=== PATIENT | female | born 1945 | race Caucasian/White ===

== ENCOUNTER 2016-08-07 10:51 | Outpatient (CLI) | payer MEDICARE | END 2016-08-07 10:52 | disposition home or self-care (01) | DX: Z12.31 Encounter for screening mammogram for malignant neoplasm of breast (principal) ==

== ENCOUNTER 2016-08-26 12:01 | Outpatient (CLI) | payer MEDICARE | END 2016-08-26 12:02 | DX: F32.9 Major depressive disorder, single episode, unspecified (principal); I10 Essential (primary) hypertension; E78.5 Hyperlipidemia, unspecified ==

== ENCOUNTER 2016-09-02 09:03 | Outpatient (CLI) | payer MEDICARE | END 2016-09-02 09:04 | disposition home or self-care (01) | DX: R73.01 Impaired fasting glucose (principal) ==

== ENCOUNTER 2016-10-24 11:07 | Outpatient (CLI) | payer MEDICARE | END 2016-10-24 11:08 | disposition home or self-care (01) | DX: R91.8 Other nonspecific abnormal finding of lung field (principal) ==

== ENCOUNTER 2016-10-31 08:39 | Day surgery (SDC) | payer MEDICARE ==
[2016-10-31] MEDS ORDERED: LACTATED RINGERS 1,000 ML IV ONE (09:22)
[2016-10-31] MEDS ORDERED: fentaNYL 100 MCG/2 ML VIAL IVP ONE (09:46)
[2016-10-31] MEDS ORDERED: MIDAZOLAM 2 MG/2 ML VIAL IVP ONE (09:46)
[2016-10-31 10:58] VITALS: BP 154/75
== END 2016-10-31 08:40 | disposition home or self-care (01) ==
LOC: SDS 08:39
PROVIDERS: ATTEND Surgery
PROC: 0DBN8ZZ Excision of Sigmoid Colon, Via Natural or Artificial Opening Endoscopic (ICD-10-PCS; 2016-10-31)
PROC: 0DBK8ZZ Excision of Ascending Colon, Via Natural or Artificial Opening Endoscopic (ICD-10-PCS; principal; 2016-10-31 09:45)
DX: Z12.11 Encounter for screening for malignant neoplasm of colon (principal); D12.2 Benign neoplasm of ascending colon; D12.7 Benign neoplasm of rectosigmoid junction; D12.5 Benign neoplasm of sigmoid colon; K64.8 Other hemorrhoids; K57.30 Diverticulosis of large intestine without perforation or abscess without bleeding; I10 Essential (primary) hypertension; R05 Cough; Z85.118 Personal history of other malignant neoplasm of bronchus and lung; Z87.891 Personal history of nicotine dependence
CPT/HCPCS: 45380; J7120; 88305

== ENCOUNTER 2016-12-26 08:00 | Outpatient (CLI) | payer MEDICARE ==
[2016-12-26 18:34] LABS: BILIRUBIN,URINE NEGATIVE (NEGATIVE); PH,URINE 6.5 PH (5.0-7.5)
[2016-12-26 18:35] LABS: UA w/ MICROSCOPIC CHARGE YES
[2016-12-26 19:06] LABS: UR CULTURE IF IND INDICATED
== END 2016-12-26 08:01 | disposition home or self-care (01) ==
LOC: LAB.R 08:00
PROVIDERS: ATTEND Nurse Practitioner Family
DX: N39.0 Urinary tract infection, site not specified (principal)
CPT/HCPCS: 81001; 81003; 87086

== ENCOUNTER 2017-07-28 08:00 | Outpatient (CLI) | payer MEDICARE ==
[2017-07-28 18:29] LABS: BASOPHILS # (AUTO) 0.1 10^3/uL (0.0-0.1); BASOPHILS % (AUTO) 0.5 %; EOSINOPHILS # (AUTO) 0.2 10^3/uL (0.0-0.7); EOSINOPHILS % (AUTO) 1.4 %; HGB - HEMOGLOBIN 14.5 g/dL (12.0-16.0); LYMPHOCYTES # (AUTO) 2.1 10^3/uL (1.5-3.5); LYMPHOCYTES % (AUTO) 17.2 %; MEAN CORPUSCULAR HEMOGLOBIN 31.8 pg (27.0-31.0); MEAN CORPUSCULAR HGB CONC 33.3 g/dL (32.0-36.0); MEAN CORPUSCULAR VOLUME 95.4 fL (81.0-99.0); MONOCYTES % (AUTO) 7.8 %; NEUTROPHILS % (AUTO) 73.1 %; PLT - PLATELET COUNT 275 10^3/uL (130-450); RED BLOOD COUNT 4.56 10^6/uL (4.20-5.40); RED CELL DISTRIBUTION WIDTH 13.5 % (12.0-15.0); WHITE BLOOD COUNT 12.3 x10^3/uL (4.8-10.8)
[2017-07-28 18:40] LABS: CALCIUM 9.2 mg/dL (8.5-10.3)
== END 2017-07-28 08:01 | disposition home or self-care (01) ==
LOC: LAB.F 08:00
PROVIDERS: ATTEND Nurse Practitioner Family
DX: E87.6 Hypokalemia (principal)
CPT/HCPCS: 36415; 80048; 85025

== ENCOUNTER 2017-08-08 13:15 | Outpatient (CLI) | payer MEDICARE ==
--- NOTE | 2017-08-11 16:16 | Mammography Report ---
DIGITAL SCREENING MAMMOGRAM: 08/08/2017 CLINICAL INDICATION: A 72-year-old, for screening. COMPARISON: 08/2016, 08/2015, 08/2014, 08/2013, 08/2012, 08/2011. TECHNIQUE: Routine CC and MLO projections were obtained of the breasts. FINDINGS: The breasts demonstrate scattered fibroglandular densities bilaterally. Coarse and punctate, typically benign calcifications are present. No suspicious masses, clustered microcalcifications, or regions of architectural distortion are identified. IMPRESSION: BENIGN FINDINGS. RECOMMENDATION: ROUTINE ANNUAL SCREENING UNLESS OTHERWISE CLINICALLY INDICATED. BIRADS CATEGORY 2-BENIGN FINDINGS. STANDARD QUALIFYING STATEMENTS: 1. This examination was reviewed with the aid of Computer-Aided Detection (CAD). 2. A negative or benign imaging report should not delay biopsy if clinically suspicious findings are present. Consider surgical consultation if warranted. More than 5% of cancers are not identified by imaging. 3. Dense breasts may obscure an underlying neoplasm. TD: 08/11/2017 16:16
== END 2017-08-08 13:16 | disposition home or self-care (01) ==
LOC: DI.S 13:15
PROVIDERS: ATTEND Nurse Practitioner Family
DX: Z12.31 Encounter for screening mammogram for malignant neoplasm of breast (principal)
CPT/HCPCS: 77067

== ENCOUNTER 2017-08-28 06:53 | Day surgery (SDC) | payer MEDICARE ==
[2017-08-28] MEDS ORDERED: LACTATED RINGERS 500 ML IV ONE ×2 (06:57→08:33)
[2017-08-28] MEDS ORDERED: KETOROLAC 0.45% OPHTH DROPS ONE (07:02)
[2017-08-28] MEDS ORDERED: CYCLOPENTOLATE 1% OPHTH DROPS 2 ML ONE (07:02)
[2017-08-28] MEDS ORDERED: PHENYLEPHRINE 2.5% OPHTH 2 ML DROPS ONE (07:02)
[2017-08-28] MEDS ORDERED: PROPARACAINE 0.5% OPHTH DROPS 15 ML ONE (07:02)
[2017-08-28] MEDS ORDERED: KETOROLAC 0.45% OPHTH DROPS LEFTEYE ONE (07:05)
[2017-08-28] MEDS ORDERED: PROPARACAINE 0.5% OPHTH DROPS 15 ML LEFTEYE ONE ×2 (07:05→08:27)
[2017-08-28] MEDS ORDERED: PHENYLEPHRINE 2.5% OPHTH 2 ML DROPS LEFTEYE ONE (07:05)
[2017-08-28] MEDS ORDERED: CYCLOPENTOLATE 1% OPHTH DROPS 2 ML LEFTEYE ONE (07:05)
[2017-08-28] MEDS ORDERED: MIDAZOLAM 2 MG/2 ML VIAL IVP ONE (08:18)
[2017-08-28] MEDS ORDERED: BRIMONIDINE 0.2% OPHTH DROPS 5 ML OPTH ONE (08:26)
[2017-08-28] MEDS ORDERED: TIMOLOL 0.5% OPHTH DROPS OPTH ONE (08:26)
[2017-08-28] MEDS ORDERED: EPINEPHrine 1 MG/ML AMP IVP ONE (08:26)
[2017-08-28] MEDS ORDERED: CHONDR SULF/HYALURONATE SYRINGE IO ONE (08:26)
[2017-08-28] MEDS ORDERED: TRIAMCIN/MOXIFLOX/VANCO 1 ML VIAL IO ONE (08:27)
[2017-08-28] MEDS ORDERED: BSS/LIDOCAINE/EPINEPHRINE 1 ML SYRINGE IO ONE (08:27)
--- NOTE | 2017-08-28 08:52 | OPERATIVE REPORT ---
DATE OF SERVICE: 08/28/2017 Physician: Justice Hess MD PREOPERATIVE DIAGNOSIS: Visually significant cataract, left eye. This was her first cataract surgery. POSTOPERATIVE DIAGNOSIS: Visually significant cataract, left eye. This was her first cataract surgery. NAME OF PROCEDURE: Phacoemulsification with posterior chamber intraocular lens implant, left eye. SURGEON: Justice Hess MD ANESTHESIA: Monitored anesthesia care. COMPLICATIONS: None. OPERATIVE INDICATIONS: This is a 72-year-old woman with progressive vision loss in the left eye due to 2+ nuclear sclerotic and 2+ cortical cataract. Best corrected visual acuity was 20/50 with glare to 20/150 in the left eye. Indications for surgery were overall decrease in vision, difficulty reading, difficulty seeing words, closed captions or game scores on TV; difficulty driving in low light or at night, difficulty driving at night because of headlights from other vehicles, and difficulty with glare or bright lights in any situation. She was consented at length concerning risks and benefits of cataract surgery, after which she expressed a desire to proceed with surgery. OPERATIVE PROCEDURE: The patient was taken into OR #3 and placed under monitored anesthesia care. A surgical timeout was conducted confirming correct patient, correct procedure, and correct surgical site. She was given topical anesthesia, and prepped and draped in the usual sterile fashion. The eye was entered at the 6 and 3 o'clock positions. Intracameral Shugarcaine was injected into the anterior chamber, followed by Viscoat. A continuous-tear curvilinear capsulorrhexis was performed. The nucleus was hydrodissected and phacoemulsified. The cortex was evacuated using automated infusion and aspiration. Provisc was injected into the capsular bag, and a 24.5 diopter intraocular lens was inserted in the bag. Approximately 0.8 mL of a mixture of triamcinolone and moxifloxacin was injected subconjunctivally in the superior quadrant for infection and inflammation prophylaxis. I and A was used to evacuate the viscoelastic materials. The eye was inflated to physiologic pressure using balanced salt solution and found to be watertight. The patient was taken from the operating room in good condition and given postop instructions. TD: 08/28/2017 08:51
[2017-08-28 08:57] VITALS: BP 110/70
== END 2017-08-28 06:54 | disposition home or self-care (01) ==
LOC: SDS 06:53
PROVIDERS: ATTEND Ophthalmology
PROC: 08RK3JZ Replacement of Left Lens with Synthetic Substitute, Percutaneous Approach (ICD-10-PCS; principal; 2017-08-28 08:00)
DX: H25.812 Combined forms of age-related cataract, left eye (principal); I10 Essential (primary) hypertension; F32.9 Major depressive disorder, single episode, unspecified; F41.9 Anxiety disorder, unspecified; Z79.82 Long term (current) use of aspirin
CPT/HCPCS: 66984; A9270; J3490; V2632

== ENCOUNTER 2017-10-30 09:20 | Day surgery (SDC) | payer MEDICARE ==
[2017-10-30] MEDS ORDERED: PROPARACAINE 0.5% OPHTH DROPS 15 ML EACHEYE ONE (09:21)
[2017-10-30] MEDS ORDERED: CYCLOPENTOLATE 1% OPHTH DROPS 2 ML EACHEYE ONE (09:21)
[2017-10-30] MEDS ORDERED: PHENYLEPHRINE 2.5% OPHTH 2 ML DROPS EACHEYE ONE (09:21)
[2017-10-30] MEDS ORDERED: KETOROLAC 0.45% OPHTH DROPS EACHEYE ONE (09:21)
[2017-10-30] MEDS ORDERED: LACTATED RINGERS 500 ML IV ONE (09:55)
[2017-10-30] MEDS ORDERED: MIDAZOLAM 2 MG/2 ML VIAL IVP ONE (10:42)
[2017-10-30] MEDS ORDERED: EPINEPHrine 1 MG/ML AMP IVP ONE (10:44)
[2017-10-30] MEDS ORDERED: BRIMONIDINE 0.2% OPHTH DROPS 5 ML OPTH ONE (10:44)
[2017-10-30] MEDS ORDERED: BSS/LIDOCAINE/EPINEPHRINE 1 ML SYRINGE IO ONE (10:45)
[2017-10-30] MEDS ORDERED: CHONDR SULF/HYALURONATE SYRINGE IO ONE (10:45)
[2017-10-30] MEDS ORDERED: TRIAMCIN/MOXIFLOX/VANCO 1 ML VIAL IO ONE (10:45)
[2017-10-30] MEDS ORDERED: TIMOLOL 0.5% OPHTH DROPS OPTH ONE (10:45)
[2017-10-30] MEDS ORDERED: PROPARACAINE 0.5% OPHTH DROPS 15 ML RIGHTEYE ONE (10:46)
[2017-10-30 11:23] VITALS: BP 117/54
--- NOTE | 2017-10-30 11:44 | OPERATIVE REPORT ---
DATE OF SERVICE: 10/30/2017 Physician: Justice Hess MD PREOPERATIVE DIAGNOSIS: Visually significant cataract, right eye. Cataract surgery was performed on the left eye on . POSTOPERATIVE DIAGNOSIS: Visually significant cataract, right eye. Cataract surgery was performed on the left eye on 08/28/2017. PROCEDURE PERFORMED: Phacoemulsification with posterior chamber intraocular lens implant, right eye. SURGEON: Justice Hess M.D. ANESTHESIA: Monitored anesthesia care. COMPLICATIONS: None. OPERATIVE INDICATIONS FOR PROCEDURE: This is a 72-year-old woman with progressive vision loss in the right eye due to 2+ nuclear sclerotic and 2+ cortical cataract. Best corrected visual acuity was 20/20 with glare to 20/60 in the right eye. Indications for surgery were overall decrease in vision, difficulty seeing words on the computer screen, difficulty reading, difficulty seeing words, closed captions or game scores on TV, difficulty seeing street signs, difficulty driving in low light or at night, difficulty driving at night, because of headlights from other vehicles, and difficulty with glare or bright lights in any situation. She was consented at length concerning risks and benefits of cataract surgery, after which he expressed a desire to proceed with surgery. OPERATIVE PROCEDURE: The patient was taken to OR #3 and placed under monitored anesthesia care. A surgical timeout was conducted confirming correct patient, correct procedure, and correct surgical site. She was given topical anesthesia, and prepped and draped in usual sterile fashion. The eye was entered at the 12 and 9 o'clock positions. Intracameral Shugarcaine was injected into the anterior chamber, followed by Viscoat. A continuous-tear curvilinear capsulorrhexis was performed. The nucleus was hydrodissected and phacoemulsified. The cortex was evacuated using automated infusion aspiration. Provisc was injected in the capsular bag, and a 24.5 diopter intraocular lens was inserted into the bag. Approximately 0.7 mL of a mixture of triamcinolone and moxifloxacin was injected subconjunctivally in the superior quadrant. An additional injection of vancomycin 0.3 mL was also injected in the superior quadrant for infection and inflammation prophylaxis. I and A was used to evacuate the viscoelastic material. The eye was inflated to physiologic pressure with balanced salt solution and found to be watertight. The patient was taken from the operating room in good condition and given postop instructions. TD: 10/30/2017 11:08
== END 2017-10-30 09:21 | disposition home or self-care (01) ==
LOC: SDS 09:20
PROVIDERS: ATTEND Ophthalmology
PROC: 08RJ3JZ Replacement of Right Lens with Synthetic Substitute, Percutaneous Approach (ICD-10-PCS; principal; 2017-10-30 10:30)
DX: H25.811 Combined forms of age-related cataract, right eye (principal); I10 Essential (primary) hypertension; Z79.82 Long term (current) use of aspirin; I73.9 Peripheral vascular disease, unspecified
CPT/HCPCS: 66984; A9270; J3490; V2632

== ENCOUNTER 2018-06-03 10:36 | Outpatient (CLI) | payer MEDICARE | END 2018-06-03 10:37 | disposition home or self-care (01) | LOC: LAB.F 10:36 | PROVIDERS: ATTEND Nurse Practitioner Family | DX: R60.9 Edema, unspecified (principal); E87.6 Hypokalemia | CPT/HCPCS: 36415; 80048 ==

== ENCOUNTER 2018-10-12 08:00 | Outpatient (CLI) | payer MEDICARE ==
[2018-10-12 18:25] LABS: CREATININE 0.9 mg/dL (0.4-1.0)
== END 2018-10-12 23:59 | disposition home or self-care (01) ==
LOC: LAB.S 08:00
PROVIDERS: ATTEND Nurse Practitioner
DX: E87.6 Hypokalemia (principal)
CPT/HCPCS: 36415; 80048

== ENCOUNTER 2018-10-19 08:58 | Outpatient (CLI) | payer MEDICARE ==
--- NOTE | 2018-10-19 11:04 | CT Report ---
Reason: LUNG CANCER Procedure Date: 10/19/2018 Accession Number: [id number] / [id number] Procedure: CT - CHEST WO CPT Code: FULL RESULT: EXAM: CT CHEST EXAM DATE: 10/19/2018 09:13 AM. CLINICAL HISTORY: Lung cancer. COMPARISONS: CHEST W/O 10/07/2017 12:[address] CHEST WITHOUT CONTRAST 11/08/2013 12:23 PM. TECHNIQUE: Routine helical CT imaging was performed through the chest. IV contrast: None. Reconstructions: Coronal and sagittal. In accordance with CT protocol optimization, one or more of the following dose reduction techniques were utilized for this exam: automated exposure control, adjustment of mA and/or KV based on patient size, or use of iterative reconstructive technique. FINDINGS: Lungs/Pleura: Stable operative changes status post right middle lobectomy. Stable calcified peripheral 4 mm nodule right upper lobe consistent with granuloma (02/23). There are 2 additional sub-2 mm nodules in the left lower lobe (9/43, /47) unchanged since 2013. No new pulmonary nodule. No bronchial thickening, consolidation, or edema. Pulmonary vasculature is normal. No pericardial or pleural effusion. No pneumothorax. Mediastinum: No adenopathy or masses. The heart and great vessels are normal. Significant coronary artery calcification noted of the circumflex, left anterior descending coronary artery and right coronary arteries. Bones: Unremarkable. Visualized Abdomen: Stable 3.5 cm simple cyst upper pole right kidney. Long-standing left-sided nephrolithiasis with a 12 mm nonobstructing stone mid pole, stable since 2013. Other: None. IMPRESSION: 1. Stable operative changes after right middle lobectomy. Stable benign pulmonary nodules/granulomata. No new pulmonary nodule. 2. Significant three-vessel coronary artery calcification. 3. Stable simple right renal cyst and stable left-sided nephrolithiasis. RADIA
== END 2018-10-19 08:59 | disposition home or self-care (01) ==
LOC: DI 08:58
PROVIDERS: ATTEND Internal Medicine Hematology & Oncology
DX: C34.90 Malignant neoplasm of unspecified part of unspecified bronchus or lung (principal); I25.10 Atherosclerotic heart disease of native coronary artery without angina pectoris; N20.0 Calculus of kidney; N28.1 Cyst of kidney, acquired; R91.8 Other nonspecific abnormal finding of lung field
CPT/HCPCS: 71250

== ENCOUNTER 2019-01-04 08:40 | Outpatient (CLI) | payer MEDICARE ==
[2019-01-04 10:53] LABS: ALBUMIN 3.9 g/dL (3.2-5.5); ALBUMIN/GLOBULIN RATIO 1.3 (1.0-2.2); ALKALINE PHOSPHATASE 64 IU/L (42-121); ALT ALANINE AMINOTRANSFERASE 30 IU/L (10-60); AST ASPARTATE AMINOTRANSFERASE 28 IU/L (10-42); BILIRUBIN,TOTAL 0.9 mg/dL (0.2-1.0); BUN - BLOOD UREA NITROGEN 19 mg/dL (6-20); CARBON DIOXIDE - CO2 26 mmol/L (21-32); CHLORIDE 106 mmol/L (101-111); CHOL/HDL RATIO 3.1 (<4.4); CHOLESTEROL 137 mg/dL; CREATININE 0.9 mg/dL (0.4-1.0); GFR - MDRD 61 (>89); GLUCOSE 121 mg/dL (70-100); HDL CHOLESTEROL 44 mg/dL; LDL CHOLESTEROL,CALCULATED 69 mg/dL; LDL/HDL RATIO 1.6 (<4.4); SODIUM 144 mmol/L (135-145); VLDL CHOLESTEROL 24 mg/dL
== END 2019-01-04 08:41 | disposition home or self-care (01) ==
LOC: LAB.S 08:40
PROVIDERS: ATTEND Internal Medicine
DX: E78.5 Hyperlipidemia, unspecified (principal)
CPT/HCPCS: 36415; 80053; 80061; 83721

== ENCOUNTER 2019-11-15 15:13 | Outpatient (CLI) | payer MEDICARE ==
--- NOTE | 2019-11-15 15:49 | XRAY Report ---
Reason: LUNG CA Procedure Date: 11/15/2019 Accession Number: [id number] / [id number] Procedure: XR - Chest 2 View X-Ray CPT Code: 46994 Final Report FULL RESULT: PROCEDURE: Chest 2 View X-Ray INDICATIONS: LUNG CA TECHNIQUE: 2 view(s) of the chest. COMPARISON: None. FINDINGS: Surgical changes and devices: None. Lungs and pleura: No pleural effusions or pneumothorax. Lungs are clear. Mediastinum: Mediastinal contours are normal. Heart size is normal. Bones and chest wall: No suspicious bony abnormalities. Soft tissues appear unremarkable. IMPRESSION: No acute disease Reviewed by: Derick Bah MD on 11/15/2019 3:47 PM PDT Approved by: Derick Bah MD on 11/15/2019 3:47 PM PDT Station ID: [id number]
== END 2019-11-15 15:14 | disposition home or self-care (01) ==
LOC: DI 15:13
PROVIDERS: ATTEND Internal Medicine Hematology & Oncology
DX: C34.90 Malignant neoplasm of unspecified part of unspecified bronchus or lung (principal)
CPT/HCPCS: 71046

== ENCOUNTER 2020-11-04 12:58 | Outpatient (CLI) | payer MEDICARE ==
--- NOTE | 2020-11-04 20:05 | CT Report ---
PROCEDURE: CHEST WO INDICATIONS: LUNG CA TECHNIQUE: Noncontrast 5 mm thick sections acquired from the pulmonary apices to the posterior costophrenic angl es. 7 mm thick coronal and sagittal MIP reformats were then acquired. For radiation dose reduction, the following was used: automated exposure control, adjustment of mA and/or kV according to patient size. COMPARISON: 10/19/2018, 10/07/2017. Correlation is also made with chest radiograph, 11/15/2019. FINDINGS: Image quality: Excellent. Lungs and pleura: Prior right middle lobectomy can be seen. Within the right upper lobe, there is a subpleural nodule with central calcification seen measures 5 mm, as on series 4 image 82. This is sta ble compared to the prior examination. Tiny 2 mm pulmonary nodules can be seen involving the left low er lobe, as before. No definite new pulmonary nodules are seen. No acute air space opacities. No pleural effusions or pneumothorax. Central and peripheral airways are patent and normal in caliber. Mediastinum: Heart size is normal. There is at least moderate coronary artery calcification seen. No pericardial effusion. No mediastinal adenopathy by size criteria. Thoracic aorta and central pulmo nary arteries are normal in size. Esophagus is normal in caliber. There is a small hiatal hernia. Bones and chest wall: No suspicious bony lesions. No vertebral body compression fractures. Age-brayden ropriate degenerative changes are seen. No axillary or supraclavicular adenopathy by size criteria. The thyroid is normal in size and there are no incidental findings. Abdomen: Nonobstructing bilateral renal stones are seen, which measure up to 4 mm on the right and me asure up to 1 cm on the left. Prominent aortic calcification can be seen, with approximately 40% irwin nal narrowing, as on series 3 image 67. The visualized portions of the upper abdominal structures are otherwise within normal limits. IMPRESSION: Stable pulmonary nodules are seen, which are considered to be benign. Prior right middle lobectomy. Incidental note is made of: At least moderate coronary artery calcification Small hiatal hernia Nonobstructing bilateral renal stones Simple appearing right renal cyst Prominent aortic calcification, with luminal narrowing. Reviewed by: Denys Siddiqi MD on 11/04/2020 7:03 PM [facility]DT Approved by: Denys Siddiqi MD on 11/04/2020 7:03 PM AKDT Station ID: [id number]
== END 2020-11-04 12:59 | disposition home or self-care (01) ==
LOC: DI 12:58
PROVIDERS: ATTEND Internal Medicine Hematology & Oncology
DX: Z09 Encounter for follow-up examination after completed treatment for conditions other than malignant neoplasm (principal); R91.8 Other nonspecific abnormal finding of lung field; Z85.118 Personal history of other malignant neoplasm of bronchus and lung

== ENCOUNTER 2021-12-01 10:14 | Outpatient (CLI) | payer MEDICARE ==
--- NOTE | 2021-12-01 10:35 | XRAY Report ---
PROCEDURE: Chest 2 View X-Ray INDICATIONS: HISTORY OF LUNG CANCER TECHNIQUE: 2 view(s) of the chest. COMPARISON: 11/04/2020 and 11/15/2019 FINDINGS: Surgical changes and devices: None. Lungs and pleura: Volume loss in the right lung reflective of prior right middle lobectomy. Some line ar scarring versus radiation change in the perihilar region is similar to the prior study. No suspici ous pulmonary nodule or mass identified. No pleural effusion or pneumothorax. Mediastinum: Mediastinal contours are normal. Heart size is normal. Bones and chest wall: No suspicious bony abnormalities. Soft tissues appear unremarkable. IMPRESSION: No acute finding. No suspicious pulmonary nodule or mass. Volume loss consistent with prior right middle lobectomy. Reviewed by: Xu Celeste MD on 12/01/2021 10:34 AM PDT Approved by: Xu Celeste MD on 12/01/2021 10:34 AM PDT Station ID: [id number]
== END 2021-12-01 10:15 | disposition home or self-care (01) ==
LOC: DI.S 10:14
PROVIDERS: ATTEND Internal Medicine Hematology & Oncology
DX: Z85.118 Personal history of other malignant neoplasm of bronchus and lung (principal); Z90.2 Acquired absence of lung [part of]